=== PATIENT | male | born 1990 | race Caucasian/White ===

== ENCOUNTER 2021-05-31 03:01 | Inpatient (IN) | payer SELFPAY ==
[~2021-05-31] VITALS: Ht 165.1 cm; Wt 63.6 kg
[2021-05-31 03:39] LABS: BASO # 0.1 K/mm3 (0.0-0.2); BASO % 0.5 % (0.0-2.0); EOS # 0.2 K/mm3 (0.0-0.7); EOS % 1.2 % (0.0-4.0); GRAN # 9.1 K/mm3 (1.4-6.5); HEMATOCRIT 41.5 % (42.0-52.0); HEMOGLOBIN 15.1 g/dl (13.5-18.0); LYMPH # 2.1 K/mm3 (1.2-3.4); LYMPH % 16.8 % (20.0-51.0); MEAN CELL VOLUME 86 fl (80.0-100.0); MEAN CORPUSCULAR HEMOGLOBIN 31 pg (27-31); MEAN CORPUSCULAR HGB CONC 36 g/dl (33.0-37.0); MEAN PLATELET VOLUME 9.5 fl (7.4-10.4); MONO # 0.8 K/mm3 (0.1-0.6); MONO % 6.2 % (1.7-9.3); PLATELET COUNT 359 K/mm3 (130-400); RED BLOOD COUNT 4.84 M/mm3 (4.20-5.60); REDCELL DISTRIBUTION WIDTH-CV 12.2 % (11.5-14.5)
[2021-05-31 03:53] LABS: ALBUMIN 4.7 gm/dL (3.5-5.0); BILIRUBIN,TOTAL 0.9 mg/dL (0.2-1.2); CALCIUM 9.5 mg/dL (8.4-10.2); CREATININE, serum 0.82 mg/dL (0.72-1.25); POTASSIUM 3.8 mmol/L (3.5-4.5); TOTAL PROTEIN 7.5 gm/dL (6.2-8.1)
[2021-05-31 11:25] VITALS: BP 136/82; PULSE 84; TEMP 98.6
[2021-05-31 11:40] VITALS: BP 131/70; PULSE 86
[2021-05-31 11:55] VITALS: BP 134/89; PULSE 82
[2021-05-31 12:10] VITALS: BP 123/90; PULSE 86
[2021-05-31 12:25] VITALS: BP 136/89; PULSE 65
[2021-05-31 12:55] VITALS: BP 137/76; PULSE 86
--- NOTE | 2021-05-31 12:55 | NUR ---
Report received from SUSANNA Hess and care resumed at this time. Pt is awake and alert and has met discharge criteria. Pt has voided and tolerated food and drink well. Upper incision bandaid changed by SUSANNA Hess for bloody drainage, no active bleeding noted. Pt's pain is tolerable. Pt does not have a ride home. A taxi service was called and will come pick him up.
--- NOTE | 2021-05-31 12:55 | NUR ---
1120 Report received from SUSANNA Mathur, in PACU. 1125 Transport pt from PACU to discharge room in [facility] [place] [place] via cart and this RN assist. Monitors on and alarms set. Pt a little drowsy but answers all questions appropriately. Discussion with pt regarding his ride home. Pt states there is no one who can pick him up. Pt proposes a taxi as the best way to get home. Arrangements to be made for his ride home. Pt stating he has no nausea and is rating his pain at 4-5 and tolerable. Pt asked about a need for medicine at this time, and he declines. Three bandaid sites clean, dry, and intact. Pt requests muffin and apple juice. 1135 Pt taking food and drink well. Pt requests more apple juice. 1145 Pt continues to do well with no nausea and pain remaining "tolerable" as before. 1230 Pt states that he is ready to go to the bathroom. Pt ambulates to restroom with this RN assist without complications. Pt instructed to pull call light before standing up. 1233 Pt voids, and this RN assists to standing and ambulating back to the discharge bay. Pt has new blood staining his gown from the most cephalad midline bandaid. 1235 Communicate incision site bleeding to Dr. Brand. Plan to check for active bleeding and replace the bandaid. Site appears to not have any active bleeding. Site cleaned and new bandaid applied. 1255 Hand-off report given to SUSANNA Connolly.
--- NOTE | 2021-05-31 13:10 | NUR ---
IV discontinued and pt gets dressed, tolerates movement well. Discharge instructions provided and pt taken out via wheelchair and left in care of taxi service to take him home at 1325. Pt does not have a follow up appoinment and knows to call Dr. Brand office with problems or concerns and phone number provided. Pt reports his roommate should be home later this afternoon.
== END 2021-05-31 13:25 | disposition home or self-care (01) | DRG 419 ==
LOC: COL.ER 03:01 → EDBEDREQ 08:47 → SURG 08:59
PROVIDERS: Personal Emergency Response Attendant; Surgery; ADMIT Student in an Organized Health Care Education/Training Program
PROC: 0FT44ZZ Resection of Gallbladder, Percutaneous Endoscopic Approach (ICD-10-PCS; principal; 2021-05-31 09:30)
DX: K80.00 Calculus of gallbladder with acute cholecystitis without obstruction (principal)
CPT/HCPCS: J0295; J0690; J1100; J1885; J2270; J2405; J2704; J3010; J7030; J7120; Q9967